=== PATIENT | female | born 1960 ===

== ENCOUNTER 2016-10-28 05:39 | Inpatient (IN) ==
[2016-10-22 14:19] LABS: Basophils % 0.4 % (0.0-0.8); Eosinophils # 0.2 10*3/uL (0.0-0.87); Eosinophils % 1.6 % (0.00-10.9); Hemoglobin 12.1 GM/DL (12.0-16.0); Immature Granulocytes % 0.3 %; Immature Granulocytes Absolute 0.03 #; Lymphocytes # 3.6 10*3/uL (1.4-4.0); Lymphocytes % 35.2 % (21.3-54.2); Mean Corpuscular HGB Conc 32.7 GM/DL (32-36); Mean Corpuscular Hemoglobin 28 PG (27-34); Mean Corpuscular Volume 85.3 FL (87-102); Monocytes # 0.8 10*3/uL (0.11-0.8); Monocytes % 7.5 % (1.7-12.7); Neutrophils # 5.7 10*3/uL (1.4-7.4); Platelet Count 289 T/CUMM (130-400); Red Blood Count 4.34 MC/CUMM (3.8-5.5); Red Cell Distribution Width 14.8 % (9.3-17.3); White Blood Count 10.3 T/CUMM (4-12)
--- NOTE | 2016-10-22 14:22 | EKG Report ---
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
[2016-10-22 14:56] LABS: Alanine Aminotransferase 19 U/L (13-56); Albumin 3.8 G/DL (3.4-5.0); Alkaline Phosphatase 87 U/L (45-117); Aspartate Amino Transferase 12 U/L (0-37); Bilirubin,Total < 0.39 MG/DL (0.2-1.0); Blood Urea Nitrogen 16 MG/DL (7-18); Calcium 9.4 MG/DL (8.5-10.1); Glucose 81 MG/DL (74-106); Osmolality,Calculated 276.5 MOS/KG (273-304); Potassium 4.4 MMOL/L (3.5-5.1); Sodium 139 MMOL/L (136-145); Total Protein 7.5 G/DL (6.4-8.3)
--- NOTE | 2016-10-22 15:58 | XRay Report ---
XR chest 2V Indication: Preop respiratory evaluation. Chest 2 views: No comparison. The heart size and mediastinal contour are normal. The lungs and pleural spaces are clear. Bones are unremarkable. Impression: Negative chest. PROCEDURE INTERPRETED AT [facility] DEPARTMENT OF RADIOLOGY Final Report Signed by: Brad Bacon M.D.
[2016-10-28] MEDS ORDERED: SODIUM CHLORIDE 0.9% 100 ML IV ONE (05:55)
[2016-10-28] MEDS ORDERED: ERTAPENEM 1,000 MG VIAL ONE (05:55)
[2016-10-28] MEDS ORDERED: ERTAPENEM 1,000 MG in SODIUM CHLORIDE 0.9% 100 ML IV ONE (06:00)
[2016-10-28] MEDS ORDERED: ALVIMOPAN 12 MG CAPSULE PO ONE (06:00)
[2016-10-28] MEDS ORDERED: ALVIMOPAN 12 MG CAPSULE ONE (06:24)
[2016-10-28] MEDS: LACTATED RINGERS 1,000 ML IV SCH ×4 (06:33→14:32)
--- NOTE | 2016-10-28 06:49 | History and Physical Update ---
History and Physical Update - History and Physical H&P was reviewed, the patient examined and there: are no changes in the patients condition since last H&P was completed. - Dictation Physical: refer to scanned H&P
[2016-10-28] MEDS ORDERED: ONDANSETRON 4 MG/2 ML VIAL ONE ×2 (07:03→11:58)
[2016-10-28] MEDS ORDERED: LIDOCAINE 2% 5 ML VIAL ONE (07:03)
[2016-10-28] MEDS ORDERED: PROPOFOL 200 MG/20 ML VIAL IV ONE (07:03)
[2016-10-28] MEDS ORDERED: ROCURONIUM 100 MG/10 ML VIAL IV ONE (07:03)
[2016-10-28 08:34] LABS: Apearance,Urine CLEAR (Clear); Bilirubin,Urine Negative (Negative); Blood, Urine Negative (Negative); Glucose,Urine (UA) Negative (Negative); Ketones,Urine Negative (Negative); Nitrite,Urine Negative (Negative); Protein,Urine Negative; Urine Color Colorless (Yellow); Urine Specific Gravity 1.002 (1.001-1.035); Urine Urobilinogen < 2.0 EU/DL (0.2-1.0); WBC,Urine <1 /HPF (0-6)
[2016-10-28] MEDS ORDERED: TISSUE ADHESIVE 1 EACH APPLICATOR TOP ONE (10:04)
--- NOTE | 2016-10-28 11:37 | Anesthesia Post-Op ---
Anesthesia Post OP - Post Ansesthetic Evaluation Patient seen in post op: Yes Resp: within normal limits CV: within normal limits Mental: within normal limits Temp: within normal limits Nihe-Ki-Suyamqlbc: within normal limits Nausea and Vomiting: within normal limits Pain: within normal limits
--- NOTE | 2016-10-28 11:39 | Operative Note ---
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 Robotic assisted laparoscopic lysis of adhesions 2. Robotic assisted laparoscopic right colectomy Complications None apparent Specimen Right colon Additional terminal ileum and redo anastomosis Findings The 2 separate tattoos were seen and the specimen was opened on the back table to reveal adequate removal of both tattooed areas with a distal margin of 5 cm. The initial anastomosis had a twisted mesentery so it was revised and resected and redone. The final anastomosis appeared patent and well perfused. There is extensive intra-abdominal adhesions that required lysis of adhesions. Blood loss 50 mL Anesthesia GETA Indications Carcinoma in situ of sessile polyp of the right colon not amenable to endoscopic resection with additional more proximal ascending colon polyp the revealed adenoma. Description of procedure The patient was taken to the operating room and transferred to the operating table in supine position. Pressure points were padded and SCDs were placed lower extremities. General endotracheal anesthesia was administered. A West catheter was placed with clear urine output. The patient was prepped and draped with chlorhexidine. Preoperative antibiotics were administered and a timeout was performed. The abdomen was entered in a supraumbilical paramedian location on the left side of the abdominal wall with a Veress needle. An 8 mm skin incision was made with an 11 blade scalpel and penetrating towel clips were used to grasp the abdominal wall skin Veress needle was used to enter the peritoneal cavity confirmed by double click technique. Aspiration was negative. Saline drop test confirmed intraperitoneal location. The Veress needle was used to insufflate the abdominal cavity to 15 mmHg with an initial pressure of 2 mmHg. The Veress needle was removed and a robotic 8 mm trocar was placed blindly. Laparoscope was inserted. There is no evidence of Veress needle or trocar injury. The 2 separate tattoos in the ascending and hepatic flexure were seen. The patient had extensive intra-abdominal adhesions. The 12 mm left upper quadrant abdominal trochars placed under direct visualization after local anesthetic was administered and the 5 mm assistant production editor trocar was placed in the left lower quadrant. The adhesions were taken down with sharp dissection with lysis of adhesions laparoscopically. The 8 mm left lower quadrant trocar was then placed. The robot was docked. The cecum was retracted and the ileocolic pedicle was identified and divided with a vascular stapler. Medial lateral dissection was performed with visualization of the duodenum and the dissection was then carried up towards the transverse colon which was about 5 cm distal to the most distal tattoo. The colon was transected at this location after the omentum was taken off the colon with electrocautery using a CARLOS stapler. The terminal ileum was then transected also with a CARLOS stapler. There were some adhesions to the pelvis from the patient's prior surgery on the terminal ileum that had to be dissected free in some of the terminal ileum got beat up a little bit during the dissection so an additional segment of terminal ileum was removed and sent as a separate specimen. An intracorporeal anastomosis was completed by making an enterotomy and colotomy in the GI stapler was used to staple the anastomosis side to side. The enterotomy was closed with the CARLOS stapler. The piece of anastomosis that was resected during the closure of the staple line was taken out through separate specimen. The mesentery was inspected and appeared to be twisted so this anastomosis was taken down through the extraction incision after the initial specimen was removed and the anastomosis was revised and the initial anastomosis was resected. A [id number]-mnep stapled anastomosis was performed and the common enterotomy and colotomy was closed again with a stapler. The laparoscope was reinserted and the mesentery appeared untwisted and the anastomosis appeared viable and patent. The specimen was extracted through a left upper quadrant incision extended from the 12 mm trocar site through an Papi retractor. The specimen was opened on the back table and both tattoos were seen in the more distal polyp was about 8 cm from the distal resection margin. Gloves and gowns were then changed. The fascial incision was closed with a #1 non-looped PDS suture in 2 layers. The skin incisions were closed with skin clips and irrigated prior to closing. The patient's West was removed and she was awakened from anesthesia and transferred to recovery. Postoperative plan Advance diet as tolerated Pain control Anesthesia: ELIEZERA Surgeon / Physician: Stefan Betancourt Estimated blood loss: other (50 mL) Specimens: other (right colon) Condition: stable Disposition: PACU Results - Labs CBC & BMP: 10/22/16 14:13 10/22/16 14:13 Discharge Plan - Discharge Medications No Action Aspirin [Ecotrin] 81 mg PO BID metFORMIN [Glucophage] 500 mg PO BID W/MEALS Polyethylene Glycol Powder [Miralax] 17 gm PO DAILY Fluticasone Propionate [Flonase Allergy Relief] 1 spray BOTH NARES BID Ergocalciferol (Vitamin D2) [Vitamin D2] 50,000 unit PO Q7D Fexofenadine [Evelin] 60 mg PO DAILY - Follow Up or Referral - Forms/Instructions
[2016-10-28] MEDS ORDERED: SEVOFLURANE 1 UNIT/15 MINUTE INH ONE (11:40)
[2016-10-28] MEDS ORDERED: ACETAMINOPHEN 1,000 MG/100 ML VIAL IV ONE (11:41)
[2016-10-28] MEDS ORDERED: fentaNYL 100 MCG/2 ML VIAL ONE (11:41)
[2016-10-28] MEDS ORDERED: MIDAZOLAM 2 MG/2 ML VIAL ONE (11:41)
[2016-10-28] MEDS ORDERED: LACTATED RINGERS 2,000 ML IV ONE (11:41)
[2016-10-28] MEDS ORDERED: ONDANSETRON 4 MG/2 ML VIAL IV PRN ×3 (12:01→13:17)
[2016-10-28] MEDS ORDERED: HYDROmorphone 2 MG/1 ML VIAL IV PRN (12:01)
[2016-10-28] MEDS ORDERED: PROMETHAZINE 25 MG/1 ML VIAL IM PRN ×2 (12:46→13:17)
[2016-10-28] MEDS: KETOROLAC 30 MG/1 ML VIAL IV SCH ×2 (13:40→18:02)
--- NOTE | 2016-10-28 15:12 | Event Note ---
General Surgery Progress Note Chief complaint This patient is a 56-year-old woman who underwent robotic assisted laparoscopic lysis of adhesions with right colectomy for a malignant polyp on 10/28/2016 Interval history The patient is still resting comfortably and has not fully awakened from anesthesia. She was having some nausea earlier today postoperatively but she is resting comfortably now. She has not voided since surgery. Physical exam The patient is afebrile with normal vital signs Abdominal exam with expected postoperative tenderness Labs None new Imaging None new Assessment and plan Continue and regular until first bowel movement Began ambulating tonight and using incentive spirometer If the patient's postoperative nausea resolves she can be started on a diet tonight Repeat labs tomorrow and start DVT chemoprophylaxis tomorrow
[2016-10-28] MEDS: ASPIRIN EC 81 MG TABLET PO SCH (20:27)
[2016-10-28] MEDS: ALVIMOPAN 12 MG CAPSULE PO SCH (20:27)
[2016-10-29] MEDS: KETOROLAC 30 MG/1 ML VIAL IV SCH ×2 (00:41→05:47)
[2016-10-29] MEDS: LACTATED RINGERS 1,000 ML IV SCH ×3 (00:46→23:03)
[2016-10-29 07:29] LABS: Basophils % 0.1 % (0.0-0.8); Hematocrit 23.9 VOL% (35.7-47.0); Immature Granulocytes % 0.4 %; Immature Granulocytes Absolute 0.06 #; Lymphocytes # 2.6 10*3/uL (1.4-4.0); Mean Corpuscular HGB Conc 33.1 GM/DL (32-36); Mean Corpuscular Hemoglobin 28 PG (27-34); Monocytes # 1.2 10*3/uL (0.11-0.8); Monocytes % 8.5 % (1.7-12.7); Neutrophils # 10.3 10*3/uL (1.4-7.4); Platelet Count 204 T/CUMM (130-400); Red Blood Count 2.78 MC/CUMM (3.8-5.5); Red Cell Distribution Width 15.4 % (9.3-17.3); White Blood Count 14.2 T/CUMM (4-12)
[2016-10-29 07:31] LABS: Hemoglobin 7.9 GM/DL (12.0-16.0)
[2016-10-29 07:49] LABS: Hypochromasia 1+; Lymphocytes 17 % (20-55); Segmented Neutrophils 79 % (50-85); Total Cells Counted 100
[2016-10-29 07:50] LABS: Calcium 7.7 MG/DL (8.5-10.1); Microcytosis Slight; Osmolality,Calculated 285.1 MOS/KG (273-304); Platelet Estimate Normal; Potassium 4.1 MMOL/L (3.5-5.1)
--- NOTE | 2016-10-29 08:18 | Event Note ---
General Surgery Progress Note Chief complaint This patient is a 56-year-old woman who underwent robotic assisted laparoscopic lysis of adhesions with right colectomy for a malignant polyp on 10/28/2016 Interval history The patient had some low-grade tachycardia and fever overnight but it resolved. Her blood count is down to 8 g on her hemoglobin from 12 preop. Her vital signs are now normal and she has no orthostatic symptoms. She has had several bloody bowel movements. She has no nausea or vomiting and feels hungry this morning. Her pain is well controlled. Physical exam The patient is afebrile with normal vital signs but she did have some fever and tachycardia overnight Abdominal exam with expected postoperative tenderness, dressings are clean, dry , and intact Labs None new Imaging None new Assessment and plan Continue Entereg until the patient has a real bowel movement. Currently she just passing some blood probably from her suture line. We will repeat her hemoglobin at noon and also get a type and screen in case she needs a blood transfusion. I do not think she has active bleeding based on how stable she looks with normal vital signs but we will keep an eye on this. We will stop the Toradol and hold her Lovenox until we stabilize her hemoglobin. Continue ambulating and continue current pain regimen.
[2016-10-29] MEDS ORDERED: ENOXAPARIN 40 MG/0.4 ML SYRINGE SUBCUT SCH (09:00)
[2016-10-29] MEDS: PANTOPRAZOLE 40 MG TABLET PO SCH (09:15)
[2016-10-29] MEDS: ASPIRIN EC 81 MG TABLET PO SCH ×2 (09:15→20:59)
[2016-10-29] MEDS: POLYETHYLENE GLYCOL POWDER 17 GM PACK PO SCH (09:15)
[2016-10-29] MEDS: ALVIMOPAN 12 MG CAPSULE PO SCH ×2 (09:15→21:22)
[2016-10-29 12:29] LABS: Hemoglobin 8.2 GM/DL (12.0-16.0)
[2016-10-30] MEDS: LACTATED RINGERS 1,000 ML IV SCH (01:30)
[2016-10-30 04:40] LABS: Basophils % 0.1 % (0.0-0.8); Eosinophils # 0.1 10*3/uL (0.0-0.87); Eosinophils % 0.9 % (0.00-10.9); Hematocrit 21.1 VOL% (35.7-47.0); Immature Granulocytes % 0.6 %; Immature Granulocytes Absolute 0.08 #; Lymphocytes # 3.1 10*3/uL (1.4-4.0); Lymphocytes % 22.7 % (21.3-54.2); Mean Corpuscular HGB Conc 33.2 GM/DL (32-36); Mean Corpuscular Hemoglobin 29 PG (27-34); Mean Corpuscular Volume 86.5 FL (87-102); Mean Platelet Volume 9.9 FL (9.6-12.0); Monocytes # 0.9 10*3/uL (0.11-0.8); Monocytes % 6.2 % (1.7-12.7); Neutrophils # 9.6 10*3/uL (1.4-7.4); Neutrophils % 69.5 % (38.7-73.9); Platelet Count 196 T/CUMM (130-400); Red Blood Count 2.44 MC/CUMM (3.8-5.5); Red Cell Distribution Width 15.6 % (9.3-17.3); White Blood Count 13.8 T/CUMM (4-12)
[2016-10-30 05:06] LABS: Calcium 7.5 MG/DL (8.5-10.1); Magnesium 1.9 MG/DL (1.8-2.4); Potassium 3.7 MMOL/L (3.5-5.1)
[2016-10-30] MEDS ORDERED: SODIUM CHLORIDE 0.9% 250 ML IV PRN (06:31)
--- NOTE | 2016-10-30 07:16 | Event Note ---
General Surgery Progress Note Chief complaint This patient is a 56-year-old woman who underwent robotic assisted laparoscopic lysis of adhesions with right colectomy for a malignant polyp on 10/28/2016 Interval history The patient's hemoglobin is down to 7. She is slightly tachycardic and her blood pressure is a little bit lower. She has no abdominal pain and is up walking around. She did not pass gas or have a bowel movement yesterday but she is tolerating a regular diet with no nausea or vomiting. Physical exam The patient is afebrile with normal vital signs but she did have some grade fever and tachycardia overnight Abdominal exam with expected postoperative tenderness, dressings are clean, dry , and intact Labs As above Imaging None new Assessment and plan I do not think that the patient is actively bleeding. We will transfuse 2 units packed red cells and follow-up her hemoglobin. She will need to stay here another day. We will hold DVT chemoprophylaxis for now. Encourage ambulation and continue SCDs Continue diet as tolerated and continue entereg
[2016-10-30] MEDS: ASPIRIN EC 81 MG TABLET PO SCH ×2 (08:42→20:45)
[2016-10-30] MEDS: POLYETHYLENE GLYCOL POWDER 17 GM PACK PO SCH (08:42)
[2016-10-30] MEDS: ALVIMOPAN 12 MG CAPSULE PO SCH ×2 (08:42→20:45)
[2016-10-30] MEDS: PANTOPRAZOLE 40 MG TABLET PO SCH (08:42)
[2016-10-30 18:14] LABS: Hematocrit 27.6 VOL% (35.7-47.0)
[2016-10-30 18:20] LABS: Hemoglobin 9.1 GM/DL (12.0-16.0)
[2016-10-31 07:30] LABS: Basophils % 0.2 % (0.0-0.8); Eosinophils # 0.3 10*3/uL (0.0-0.87); Eosinophils % 2.3 % (0.00-10.9); Hematocrit 28.9 VOL% (35.7-47.0); Hemoglobin 9.4 GM/DL (12.0-16.0); Immature Granulocytes % 0.7 %; Immature Granulocytes Absolute 0.09 #; Lymphocytes # 2.4 10*3/uL (1.4-4.0); Lymphocytes % 17.7 % (21.3-54.2); Mean Corpuscular HGB Conc 32.5 GM/DL (32-36); Mean Corpuscular Hemoglobin 29 PG (27-34); Mean Corpuscular Volume 88.4 FL (87-102); Mean Platelet Volume 9.7 FL (9.6-12.0); Monocytes # 0.7 10*3/uL (0.11-0.8); Monocytes % 5.4 % (1.7-12.7); Neutrophils # 9.8 10*3/uL (1.4-7.4); Neutrophils % 73.7 % (38.7-73.9); Platelet Count 217 T/CUMM (130-400); Red Blood Count 3.27 MC/CUMM (3.8-5.5); Red Cell Distribution Width 15.1 % (9.3-17.3); White Blood Count 13.3 T/CUMM (4-12)
--- NOTE | 2016-10-31 07:42 | Discharge Summary ---
Hospital Course - Hospital Course Hospital Course: Dialysis this patient was admitted following robotic assisted laparoscopic right colectomy for an unresectable ascending colon polyp with carcinoma in situ. She did well postoperatively but she did drop her blood counts without hemodynamic changes. She responded to a 2 unit packed red blood cell transfusion. She was tolerating her diet well and passing gas and having bowel movements and she was discharged home normal with oral pain medication and follow-up in 1 week. Discharge Plan - Discharge Data Disposition: Disch To Home/Self Care Condition at Discharge: Stable Discharge Diet: advance to your usual diet Activity: no lifting Hygiene: may shower Weight Bearing at Discharge: weight bear as tolerated Driving: not until seen by doctor Contact your physician if you experience:: fever over 101, Difficulty voiding, Redness or swelling, Nausea/Vomiting, Shortness of breath, Bleeding, pain uncontrolled by pain medications Wound / Dressing Care Instructions: It is okay to shower. Do not submerge the incisions underwater. - Discharge Medications New HYDROcodone/ACETAMIN 7.5-325 [[place] 7.5-325] 1 tablet PO Q4H PRN #30 tablet PRN Reason: Pain Moderate (4-7) Continue Aspirin [Ecotrin] 81 mg PO BID metFORMIN [Glucophage] 500 mg PO BID W/MEALS Polyethylene Glycol Powder [Miralax] 17 gm PO DAILY Fluticasone Propionate [Flonase Allergy Relief] 1 spray BOTH NARES BID Ergocalciferol (Vitamin D2) [Vitamin D2] 50,000 unit PO Q7D Fexofenadine [Evelin] 60 mg PO DAILY - Follow Up or Referral Follow Up: Stefan Betancourt MD [Physician] - 11/06/16 - Forms/Instructions Exam - Constitutional Vitals: Period Temp Pulse Resp BP Sys/Kirby Pulse Ox Last 24 Hr 97.0 F-99.9 F 85-103 16-102 127-164/61-96 96-100 General appearance: no acute distress, over weight - Head Head exam: Present: normal inspection, normocephalic - Eye Eye exam: Present: EOMI Pupils: Present: SUNDAY - ENT ENT exam: Present: normal exam - Neck Neck exam: Present: normal inspection - Respiratory Respiratory exam: Present: clear to auscultation bilaterally. Absent: accessory muscle use, chest wall tenderness - Cardiovascular Cardiovascular exam: Present: regular rate and rhythm. Absent: systolic murmur , tachycardia - GI/Abdominal GI/Abdominal exam: Present: normal bowel sounds, soft. Absent: tenderness, rebound - Extremities Exam Extremities exam: Present: normal inspection - Back Exam Back exam: Present: normal inspection - Neurological Exam Neurological exam: Present: alert, oriented X3 - Psychiatric Psychiatric exam: Present: normal affect, normal mood - Skin Skin exam: Present: normal color, warm Discharge Results Labs on day of discharge: Labs from last 24 hours 10/31/16 10/30/16 10/30/16 06:59 17:31 17:27 WBC 13.3 H RBC 3.27 L D Hgb 9.4 L 9.1 L D Hct 28.9 L 27.6 L MCV 88.4 MCH 29 MCHC 32.5 RDW 15.1 Plt Count 217 MPV 9.7 Neut % (Auto) 73.7 Lymph % (Auto) 17.7 L Camp % (Auto) 5.4 Eos % (Auto) 2.3 Baso % (Auto) 0.2 Neut # (Auto) 9.8 H Lymph # (Auto) 2.4 Camp # (Auto) 0.7 Eos # (Auto) 0.3 Baso # (Auto) 0.0 Immature Gran % 0.7 Nucleated RBC % 0.0 Immature Gran # 0.09 Nucleated RBCs # 0.00 POC Glucose 171 H Blood Type Antibody Screen Crossmatch Blood Bank Comment 10/30/16 06:31 WBC RBC Hgb Hct MCV MCH MCHC RDW Plt Count MPV Neut % (Auto) Lymph % (Auto) Camp % (Auto) Eos % (Auto) Baso % (Auto) Neut # (Auto) Lymph # (Auto) Camp # (Auto) Eos # (Auto) Baso # (Auto) Immature Gran % Nucleated RBC % Immature Gran # Nucleated RBCs # POC Glucose Blood Type Cancelled Antibody Screen Cancelled Crossmatch See Detail Blood Bank Comment Cancelled DS: Provider Date of admission: 10/28/16 05:39 Primary care physician: Julio Goodrich MD Attending physician on admission: Stefan Betancourt MD Discharging clinician: Stefan Betancourt MD Expected date of discharge: 10/31/16
[2016-10-31] MEDS: ALVIMOPAN 12 MG CAPSULE PO SCH (09:15)
[2016-10-31] MEDS: POLYETHYLENE GLYCOL POWDER 17 GM PACK PO SCH (09:15)
[2016-10-31] MEDS: ASPIRIN EC 81 MG TABLET PO SCH (09:16)
[2016-10-31] MEDS: PANTOPRAZOLE 40 MG TABLET PO SCH (09:16)
[2016-10-31 11:45] VITALS: BP 146/64
[2016-11-02] MEDS ORDERED: ERGOCALCIFEROL 50,000 UNIT CAPSULE PO SCH (09:00)
--- NOTE | 2016-11-04 12:51 | Physician Query Form ---
CLICK EDIT DOCUMENT TO SELECT QUERY ANSWER --> OK --> SIGN Michaela Kauffman RN Clinical Automatic Drill Operator W) [phone] (f) [phone] [email or web address] PROVIDERS: Make your selection(s) from the choices in EACH section by typing an "x" and enter comments in the comment section. Please use your independent medical judgment in providing your response. This request does not imply that any particular answer is desired or expected. CLINICAL INDICATORS: (Providers should not edit this section) Based on documentation of "I do not think that the patient is actively bleeding. We will transfuse 2 units packed red cells and follow-up her hemoglobin." "She did well postoperatively but she did drop her blood counts without hemodynamic changes. She responded to a 2 unit packed red blood cell transfusion." HH from 12./37 to 7.9/23.9. Transfused 2 units packed red cells. Based on the above, could you clarify which of the following conditions you are evaluating, treating, and/or monitoring? (x) Blood loss anemia (x) acute ( ) chronic ( ) acute on chronic ( ) Acute blood loss anemia on baseline chronic anemia ( ) Acute blood loss anemia as a complication of a procedure ( ) Iron deficiency anemia not associated with blood loss ( ) Dilutional anemia due to IV fluids ( ) Hemolytic anemia ( ) immune ( ) non-immune - please specify cause: ( ) Anemia due to other condition, please specify: ( ) Clinically unable to determine COMMENTS: PLEASE ALSO DOCUMENT RESPONSE IN PROGRESS NOTES AND/OR DISCHARGE SUMMARY Use of terms such as suspected, likely, or probable (associated with a specific diagnosis that is being evaluated, monitored, or treated as if it exists) are acceptable and can be restated in the discharge summary if not ruled out. MTDD
== END 2016-10-31 12:08 | disposition home or self-care (01) | DRG 330 ==
LOC: N.OR 05:39 → N.SDSINP 05:39 → EDSTATUS 07:30 → N.3E 12:40
PROVIDERS: ADMIT Surgery; ATTEND Surgery